=== PATIENT | male | born 1960 | race Caucasian/White ===

== ENCOUNTER 2016-09-23 12:23 | Emergency (ER) | payer OTHER ==
[~2016-09-23] VITALS: Ht 193 cm; Wt 144.8 kg
[~2016-09-23 12:23] MED LIST: ALDACTONE100 MG PO; ASPIRIN325 MG PO; BACTRIM,SEPT1 TABLE1 PO; BACTRIM,SEPT1 TABLET PO; CARDIZEM120 MG PO; CIPRO500 MG PO; CONSTULOSE10 GM/15 M PO; DILAUDID2 MG PO; DOCUSATE SODIU100 MG PO; ENSURE HIGH PR237 ML PO; ENSURE LIQUID237 ML PO; ENULOSE10 GM/15 M PO; ERGOCALCIF50000 UNIT PO; EXTRA STRENGTH500 M1 PO; FERROUS GLUCON324 MG PO; FLEXERIL5 MG PO; FLONASE16 G1 BOTH NARES; FLOVENT DISKUS1 DIS2 IH; FUROSEMIDE20 MG PO; FUROSEMIDE40 MG PO; INDERAL10 MG PO; INDERAL40 MG PO; KEFLEX500 MG PO; KEPPRA750 MG PO; LACTULOSE; LACTULOSE PO; LACTULOSE10 GM/151 PO; LASIX20 MG PO; LASIX40 MG PO; LEXAPRO20 MG PO; LIDOCAINE700 MG TD; LIDODERM 5% P1 PATCH TD; MYCOPHENOLATE500 MG PO; OMEPRAZOLE10 M1 PO; OMEPRAZOLE20 M2 PO; OMEPRAZOLE20 MG PO; OXAYDO5 MG PO; OXYCODONE HCL5 MG PO; PLAVIX300 MG PO; PREDNISONE5 MG PO; PRILOSEC20 MG PO; PRILOSEC40 MG PO; PROMETHAZINE HC25 M1 PO; PROPRANOLOL HCL10 MG PO; PROTONIX40 MG PO; ROXICODONE5 MG PO; SPIRONOLACTONE100 MG PO; TAB-A-VITE1 EACH PO; TAMIFLU75 MG PO; XIFAXAN550 MG PO; ZINC SULFATE220 MG PO; ZOFRAN ODT4 MG PO; ZOFRAN4 MG PO; [UNRECOGNIZED DRUG - OTHER] TP
[2016-09-23] MEDS ORDERED: MOTRIN800 MG PO (15:46)
[2016-09-23] MEDS ORDERED: OXAYDO5 MG PO (15:50)
[2016-09-23 16:51] VITALS: BP 135/74
== END 2016-09-23 16:52 | disposition home or self-care (01) ==
LOC: EME 12:23
DX: S42.145A Nondisplaced fracture of glenoid cavity of scapula, left shoulder, initial encounter for closed fracture (principal); S93.401A Sprain of unspecified ligament of right ankle, initial encounter; W01.0XXA Fall on same level from slipping, tripping and stumbling without subsequent striking against object, initial encounter; I10 Essential (primary) hypertension; K21.9 Gastro-esophageal reflux disease without esophagitis; Z87.442 Personal history of urinary calculi; Z94.4 Liver transplant status; Z87.891 Personal history of nicotine dependence
CPT/HCPCS: 73030; 99281; 99284

== ENCOUNTER 2016-12-14 15:00 | Emergency (ER) | payer OTHER ==
[~2016-12-14] VITALS: Ht 193 cm; Wt 146.4 kg
[~2016-12-14 15:00] MED LIST changes: +MOTRIN800 MG PO
[2016-12-14 20:03] LABS: HEMATOCRIT 44.2 % (38.0-50.0); MCH 25.8 PG (29.0-34.0); MCHC 31.9 G/DL (30.0-36.0); MEAN PLAT.VOLUME 12.1 uM^3 (9.0-12.4); PLATELET COUNT 126 K/uL (156-360); RBC DIS.WIDTH-CV 15.6 % (11.8-14.6); RBC DIS.WIDTH-SD 43.9 % (39-53); RED BLOOD COUNT 5.46 M/uL (4.00-5.50); WHITE BLOOD COUNT 5.5 K/uL (4.1-10.2)
[2016-12-14 20:14] LABS: CHLORIDE 106 mEq/L (99-109); POTASSIUM 3.9 mEq/L (3.7-5.4); SODIUM 142 mEq/L (136-147)
[2016-12-14 20:16] LABS: GLUCOSE 69 mg/dL (70-99)
[2016-12-14 20:17] LABS: ANION GAP 12 MEQ/L (2-14)
[2016-12-14 20:19] LABS: GFR ESTIMATE (CALCULATED) > 59 mL/min/; SERUM ETHYL ALCOHOL < 10 mg/dL
[2016-12-14 20:20] LABS: UREA NITROGEN (BUN) 20 mg/dL (9-23)
[2016-12-14 20:26] LABS: TOTAL BILIRUBIN 0.7 mg/dL (0.0-1.0)
[2016-12-14 20:27] LABS: ALKALINE PHOSPHATASE 133 IU/L (3-129)
[2016-12-14 20:30] LABS: DIRECT BILIRUBIN 0.3 mg/dL (0.0-0.3)
[2016-12-14 21:01] LABS: AMPHETAMINE NEGATIVE (500 ng/mL); BARBITURATES NEGATIVE (200 ng/mL); BENZODIAZEPINES NEGATIVE (150 ng/mL); COCAINE NEGATIVE (150 ng/mL); INTERNAL CONTROLS VALID? YES; METHADONE NEGATIVE (200 ng/mL); METHAMPHETAMINE NEGATIVE (500 ng/mL); OPIATES (MORPHINE) NEGATIVE (100 ng/mL); OXYCODONE PRESUMPTIVE POSITIVE (100 ng/mL); PHENCYCLIDINE NEGATIVE (25 ng/mL); PROPOXYPHENE NEGATIVE (300 ng/mL); THC CANNABINOIDS NEGATIVE (50 ng/mL); TRICYCLIC ANTIDEPRESSANTS NEGATIVE (300 ng/mL)
[2016-12-14 23:24] LABS: POINT-OF-CARE METER ID UU14100415
[2016-12-14 23:37] VITALS: BP 182/116
== END 2016-12-14 23:38 | disposition home or self-care (01) ==
LOC: EME 15:00
PROVIDERS: Emergency Medicine
DX: R41.3 Other amnesia (principal); Z94.4 Liver transplant status; Z87.891 Personal history of nicotine dependence; I10 Essential (primary) hypertension; Z87.442 Personal history of urinary calculi; K21.9 Gastro-esophageal reflux disease without esophagitis
CPT/HCPCS: 80048; 80076; 82140; 82948; 85027; 99281; 99284; G0480; J7502; J7517

== ENCOUNTER 2016-12-20 20:13 | Emergency (ER) | payer OTHER ==
[~2016-12-20] VITALS: Ht 193 cm; Wt 150.2 kg
[2016-12-20] MEDS ORDERED: CYCLOSPORINE100 M2 PO (20:55)
[2016-12-20] MEDS ORDERED: ZOLOFT100 MG PO (20:55)
[2016-12-20] MEDS ORDERED: URSODIOL300 MG PO (21:06)
[2016-12-20] MEDS ORDERED: BACTRIM,SEPT1 TABLE1 PO (21:06)
[2016-12-20 21:13] LABS: EOSINOPHIL (%) 2.2 % (0-5); EOSINOPHIL COUNT 0.1 K/uL (0-0.3); HEMATOCRIT 40.7 % (38.0-50.0); IMMATURE GRANULOCYTE (%) 0.4 % (0.0-0.7); INSTRUMENT ABS NEUTROPHIL CT 2.4 K/uL; LYMPHOCYTE COUNT 1.3 K/uL (1.0-2.8); MCHC 32.7 G/DL (30.0-36.0); MCV 79.6 FL (86-99); MEAN PLAT.VOLUME 11.6 uM^3 (9.0-12.4); MONOCYTE (%) 15.4 % (3-12); MONOCYTE COUNT 0.7 K/uL (0-0.8); NEUTROPHIL (%) 53.7 % (45-76); NEUTROPHIL COUNT 2.4 K/uL (1.8-6.4); PLATELET COUNT 121 K/uL (156-360); RBC DIS.WIDTH-CV 15.2 % (11.8-14.6); RBC DIS.WIDTH-SD 43.5 % (39-53); RED BLOOD COUNT 5.11 M/uL (4.00-5.50); WHITE BLOOD COUNT 4.6 K/uL (4.1-10.2)
[2016-12-20 21:20] LABS: CHLORIDE 110 mEq/L (99-109); POTASSIUM 4.3 mEq/L (3.7-5.4); SODIUM 141 mEq/L (136-147)
[2016-12-20 21:21] LABS: PROTHROMBIN TIME 10.4 (9.2-11.2); PTT 25.7 (25-32)
[2016-12-20 21:23] LABS: GLUCOSE 100 mg/dL (70-99)
[2016-12-20 21:24] LABS: ANION GAP 8 MEQ/L (2-14)
[2016-12-20 21:26] LABS: SERUM ETHYL ALCOHOL < 10 mg/dL
[2016-12-20 21:27] LABS: ALKALINE PHOSPHATASE 115 IU/L (3-129); GFR ESTIMATE (CALCULATED) > 59 mL/min/
[2016-12-20 21:28] LABS: UREA NITROGEN (BUN) 15 mg/dL (9-23)
[2016-12-20 21:30] LABS: SALICYLATE < 5.0 MG/DL (15-30)
[2016-12-20 21:36] LABS: TOTAL BILIRUBIN 0.5 mg/dL (0.0-1.0)
[2016-12-20 21:47] LABS: ADD MIUA? YES; BILIRUBIN NEGATIVE; BLOOD NEGATIVE; COLOR YELLOW ((YELLOW)); GLUCOSE (STRIP) NEGATIVE; KETONES NEGATIVE; LEUKOCYTES NEGATIVE; NITRITE NEGATIVE; PROTEIN (STRIP) NEGATIVE
[2016-12-20 22:12] LABS: BACTERIA RARE /HPF; EPITHELIAL CELLS NONE SEEN /HPF; MUCUS TRACE /LPF; RED BLOOD CELLS 0-5 /HPF (0-5); UCUL ADDED? NO; WHITE BLOOD CELLS 0-5 /HPF (0-5)
[2016-12-20 22:18] LABS: AMPHETAMINE NEGATIVE (500 ng/mL); BARBITURATES NEGATIVE (200 ng/mL); BENZODIAZEPINES PRESUMPTIVE POSITIVE (150 ng/mL); CASTS NONE SEEN /LPF; COCAINE NEGATIVE (150 ng/mL); CRYSTALS NONE SEEN; METHADONE NEGATIVE (200 ng/mL); METHAMPHETAMINE NEGATIVE (500 ng/mL); OPIATES (MORPHINE) NEGATIVE (100 ng/mL); OXYCODONE NEGATIVE (100 ng/mL); PHENCYCLIDINE NEGATIVE (25 ng/mL); PROPOXYPHENE NEGATIVE (300 ng/mL); THC CANNABINOIDS NEGATIVE (50 ng/mL); TRICYCLIC ANTIDEPRESSANTS NEGATIVE (300 ng/mL)
[2016-12-20 22:19] LABS: ADD MEDTOX COMMENT Y; INTERNAL CONTROLS VALID? YES
[2016-12-20 22:39] LABS: BENZODIAZEPINES QUANT VALUE 0 NG/ML
[2016-12-20 22:41] LABS: BENZODIAZEPINES, URINE SCREEN Negative (200 ng/mL)
[2016-12-20 23:55] VITALS: BP 158/112
== END 2016-12-21 | disposition home or self-care (01) ==
LOC: EME 20:13
PROVIDERS: Emergency Medicine
DX: F32.9 Major depressive disorder, single episode, unspecified (principal); F43.21 Adjustment disorder with depressed mood; K21.9 Gastro-esophageal reflux disease without esophagitis; I10 Essential (primary) hypertension; Z87.442 Personal history of urinary calculi; Z94.4 Liver transplant status; B19.20 Unspecified viral hepatitis C without hepatic coma; Z79.02 Long term (current) use of antithrombotics/antiplatelets; Z87.891 Personal history of nicotine dependence
CPT/HCPCS: 80053; 81003; 84999; 85025; 85610; 85730; 90837; 99281; 99284; G0480; J7502; J7517